=== PATIENT | male | born 1960 | race Hispanic/Latino ===

== ENCOUNTER 2022-04-22 15:54 | Emergency (ER) | payer BC, OTHER ==
[~2022-04-22] VITALS: Ht 149.9 cm; Wt 98.0 kg
[2022-04-22 17:07] VITALS: BP 174/88
[2022-04-22] MEDS ORDERED: KETOROLAC 15MG/ML VIAL (15MG/ML) IV ONE (17:30)
[2022-04-22] MEDS ORDERED: MORPHINE 4 MG SYG IVP ONE (17:30)
[2022-04-22] MEDS ORDERED: 0.9% NACL 250ML 250 ML IV ONE (17:30)
[2022-04-22] MEDS ORDERED: ONDANSETRON 4MG INJ IVP ONE (17:30)
[2022-04-22] MEDS ORDERED: IBUP-2070 PO (18:32)
== END 2022-04-22 18:41 | disposition home or self-care (01) ==
LOC: EDH 15:54
DX: S52.501A Unspecified fracture of the lower end of right radius, initial encounter for closed fracture (principal); Z90.49 Acquired absence of other specified parts of digestive tract; X58.XXXA Exposure to other specified factors, initial encounter; Y93.89 Activity, other specified; Y92.89 Other specified places as the place of occurrence of the external cause; Y99.8 Other external cause status
CPT/HCPCS: 25605; 99284; 73110 ×2; 96374; 96375; J2405; J2270; J1885; J7050